=== PATIENT | female | born 1970 | race Hispanic/Latino ===

== ENCOUNTER 2019-02-26 06:09 | Day surgery (SDC) | payer OTHER ==
[~2019-02-26 06:09] MED LIST: LACTATED RINGERS 1,000 ML IV SCH; VERSED IV NR
[2019-02-26] MEDS ORDERED: ANCEF/STERILE WATER 2 GM/20 ML 2 GM/20 ML SYRINGE IV ONE (06:48)
[2019-02-26] MEDS ORDERED: NACL BACTERIOSTATIC INFILTRATI ONE (06:48)
[2019-02-26] MEDS ORDERED: ANCEF ONE (06:52)
[2019-02-26] MEDS ORDERED: BACITRACIN ONE (06:52)
[2019-02-26] MEDS ORDERED: NACL P/F VIAL (10 ML) 10 ML ONE (06:52)
[2019-02-26] MEDS ORDERED: ADRENALINE P/F ONE (06:52)
[2019-02-26] MEDS ORDERED: GENTAMICIN ONE (06:52)
[2019-02-26] MEDS ORDERED: XYLOCAINE 1% 20 mL ONE (07:08)
[2019-02-26] MEDS ORDERED: MARCAINE 0.25% INFILTRATI ONE ×4 (07:08→08:45)
[2019-02-26] MEDS ORDERED: NACL ONE (07:09)
[2019-02-26] MEDS ORDERED: NACL 0.9% 250ML 250 ML ONE (07:11)
[2019-02-26] MEDS ORDERED: PEPCID IV ONE (07:18)
[2019-02-26] MEDS ORDERED: TYLENOL ONE (07:18)
[2019-02-26] MEDS ORDERED: NEURONTIN ONE (07:18)
[2019-02-26] MEDS ORDERED: ANCEF/STERILE WATER 2 GM/20 ML IV NR (07:20)
[2019-02-26] MEDS ORDERED: XYLOCAINE MPF 2% ONE ×2 (07:34→10:26)
[2019-02-26] MEDS ORDERED: SUBLIMAZE ONE (07:34)
[2019-02-26] MEDS ORDERED: DIPRIVAN 10 MG/ML IV ONE (07:34)
[2019-02-26] MEDS ORDERED: ZEMURON IV ONE ×2 (07:45→10:26)
[2019-02-26] MEDS ORDERED: NACL 0.9% 500 ML 500 ML ONE (08:04)
[2019-02-26] MEDS ORDERED: XYLOCAINE 1% 20 mL INFILTRATI ONE (08:23)
[2019-02-26] MEDS ORDERED: NACL 0.9% 500 ML IV ONE (08:23)
[2019-02-26] MEDS ORDERED: ADRENALINE P/F IV ONE (08:23)
[2019-02-26] MEDS ORDERED: NACL 0.9% 250ML IV ONE (08:23)
[2019-02-26] MEDS ORDERED: GENTAMICIN IV ONE (08:43)
[2019-02-26] MEDS ORDERED: NACL 0.9% 1000 ML IV ONE (08:43)
[2019-02-26] MEDS ORDERED: ANCEF IV ONE (08:43)
[2019-02-26] MEDS ORDERED: BACITRACIN IR ONE (08:43)
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
--- NOTE | 2019-02-26 09:03 | Anesthesia Day of Surgery ---
Anesthesia Day of Surgery - Day of Surgery Patient Examined: Yes Patient H&P Reviewed: Yes Patient is NPO: Yes Beta Blockers: No Cardiac Clearance: No Pulmonary Clearance: No Quang's Test: N/A
[2019-02-26] MEDS ORDERED: NEO SYNEPHRINE/NS Syringe(OR USE) IV ONE (10:26)
[2019-02-26] MEDS ORDERED: DECADRON ONE (10:26)
[2019-02-26] MEDS ORDERED: QUELICIN ONE (10:26)
[2019-02-26] MEDS ORDERED: ZOFRAN ONE ×2 (10:26→11:21)
[2019-02-26] MEDS ORDERED: DILAUDID IV PRN (12:07)
[2019-02-26] MEDS ORDERED: DILAUDID ONE (12:11)
--- NOTE | 2019-02-26 12:13 | Operative Report ---
PREOPERATIVE DIAGNOSIS: Personal history of breast cancer. POSTOPERATIVE DIAGNOSIS: Personal history of breast cancer. PROCEDURE: 1. Exchange of bilateral tissue expanders for permanent silicone implants. 2. Bilateral extensive capsular work with capsulorrhaphy and repositioning of the pocket. 3. Bilateral breast reconstruction with other technique, fat transfer and pocket manipulation. 4. Harvesting of fat from upper abdomen for fat transfer. SURGEON: Buck Aranda MD BIOLOGY INTERNSHIP: None. ANESTHESIA: General. OPERATIVE INDICATIONS: A 48-year-old female with history of breast cancer, who underwent bilateral mastectomy and tissue mobile practice lead reconstruction. She now presents for mobile practice lead implant exchange. Of note, the patient was initially scheduled for today and then canceled due to the fact that we mistakenly had scheduled her only just over 2 months out from her previous surgery and we ideally wanted to wait at least 90 days between surgeries to allow for tissue inflammation to subside, scar tissue to mature and for all the biologic mesh to incorporate. The patient was very upset with this and wanted to have her surgery now. She was complaining that she was in excruciating pain from the expanders and could not wait any longer and was very upset about the whole situation. I discussed with the patient that if we decided to proceed with surgery prior to the 90 days, there was definitely a possibility that we may run into complications. The surgery may be more difficult and the outcome may not be as desirable. The patient understood this and decided to proceed anyways. OPERATIVE DETAILS: With informed consent obtained, the patient was brought to the operating room and placed supine on the operating table. Preoperative antibiotics and general anesthesia were administered. The patient was prepped and draped in a sterile fashion. Timeout was called verifying the name of the patient and the operation being performed. I started by making a small stab incision in the upper umbilicus and she had a previous scar in the upper abdomen that we used as well. We then infiltrated about 250 mL of tumescent fluid into the upper abdomen for liposuction. We allowed 10 minutes for the epinephrine to take effect and then went ahead and harvested fat from the upper abdomen using the [employer] system. Approximately 250 mL of aspirate was obtained of which 215 mL was re-injectable fat. We allowed that to sit on the side table while we proceeded with the remainder of the operation. I decided to make a new inframammary incision on both sides to minimize chances of wound healing of the anterior mastectomy scar, made a small inframammary incision on the right, dissected down to the capsule, incised the capsule, we then went ahead and punctured the mobile practice lead to drain it, removed the mobile practice lead, did the same thing on the left side as well. We then inspected the pocket. Of note, there were a couple issues, one there still was a moderate amount of tissue edema, also some of the acellular dermal matrix and not completely incorporated in areas. Unfortunately, I then had to remove some of the acellular dermal matrix and some of that was helping to support the lateral border of the breast. This then led to even worsening of the pocket malpositioning with significant lateral displacement of the pockets. To remedy this, I had to perform capsulorrhaphy extensively, both electrocautery capsulorrhaphy, which I attempted and then suture capsulorrhaphy in multiple layers in order to tighten up the pocket sufficiently enough that the implants were not in the axilla. This was done bilaterally on both sides. We then irrigated copiously. We placed our Marcaine into both pockets and then we placed a temporary sizer into the breast. With a sizer in place, we went ahead and did the fat transfer, so we did not perforate the permanent implant. On the left side, we transferred approximately 75 mL of fat, mostly in the upper and medial poles of the breast and then the remainder was diffuse throughout the anterior aspect of the mastectomy skin flaps in order to improve the scar and thickened the tissue there. On the right side, there was more significant deformity and so that side we placed a 140 mL of fat, again mostly in the upper medial poles and then the rest throughout the mastectomy skin flap. Once the fat was placed, we went ahead and removed the sizers. We irrigated again copiously with Betadine and triple antibiotic. We placed new gloves and got a Vann funnel and using a no-touch technique, we placed the new permanent implants into the pockets. We used Raymond smooth high-profile Xtra MemoryGel 700 mL implant on both sides. On the left side, the serial number was #[id number]. On the right side, the serial number was #[id number]. We then closed the capsule with 2-0 Vicryl interrupted [id number] sutures and then the skin with 3-0 Monocryl deep dermals and then 2-0 Monocryl V-Loc barbed suture in a subcuticular fashion. We then applied Dermabond to the incisions. The lipo incisions were all closed with 4-0 plain gut suture. We then created a lateral bolster using a combination of Tegaderm and Medipore tape to support the lateral breast and protect the capsulorrhaphy repair. I then placed the patient into a support binder. She was awakened from general anesthesia, transferred to the PACU in stable condition. ESTIMATED BLOOD LOSS: Less than 50 mL SPECIMENS: Bilateral tissue expanders removed. TOTAL TUMESCENT: 250 mL. TOTAL LIPOASPIRATE: 250 mL. TOTAL FAT REINJECTED: Right side 140 mL, left side 75 mL. JOB# [id number] KATARZYNA/MARY KAY
[2019-02-26] MEDS ORDERED: ZOFRAN IV ONE (12:20)
[2019-02-26 13:11] VITALS: BP 117/68
== END 2019-02-26 13:30 | disposition home or self-care (01) ==
LOC: OR 06:09
PROVIDERS: ATTEND Plastic Surgery
DX: C50.911 Malignant neoplasm of unspecified site of right female breast (principal); G43.909 Migraine, unspecified, not intractable, without status migrainosus; E78.00 Pure hypercholesterolemia, unspecified; I10 Essential (primary) hypertension; K21.9 Gastro-esophageal reflux disease without esophagitis; F32.9 Major depressive disorder, single episode, unspecified; F41.9 Anxiety disorder, unspecified; Z72.89 Other problems related to lifestyle; Z80.3 Family history of malignant neoplasm of breast; Z79.899 Other long term (current) drug therapy; Z98.41 Cataract extraction status, right eye; Z90.49 Acquired absence of other specified parts of digestive tract; Z90.13 Acquired absence of bilateral breasts and nipples; Z80.8 Family history of malignant neoplasm of other organs or systems; Z98.890 Other specified postprocedural states
CPT/HCPCS: 11970; 19366; 19370; 20926; 81025; C1789; J0171; J0330; J0690; J1100; J1170; J1580; J2250; J2370; J2405; J2704; J3010; J7030; J7040; J7050; J7120